=== PATIENT | female | born 1995 | race African-American/Black ===

== ENCOUNTER 2021-08-31 14:39 | Inpatient (IN) | payer OTHER ==
[~2021-08-31] VITALS: Ht 162.6 cm; Wt 68.2 kg
[2021-08-31] MEDS ORDERED: MORPHINE SULFATE 15 MG IR TABLET PO ONE (17:00)
[2021-08-31 18:08] LABS: BASOPHILS % (AUTO) 0.1 % (0.0-2.0); EOSINOPHILS % (AUTO) 0.1 % (1.0-6.0); HEMATOCRIT 36.8 % (36-46); LYMPHOCYTES # (AUTO) 1.2 K/uL (1.0-4.8); MEAN CORPUSCULAR HEMOGLOBIN 26.4 pg (26.0-34.0); MEAN CORPUSCULAR HGB CONC 32.7 G/dL (31.0-37.0); MEAN CORPUSCULAR VOLUME 81 fL (80-100); MONOCYTES # (AUTO) 0.4 K/uL (0.1-1.0); MONOCYTES % (AUTO) 3.5 % (2.0-9.0); NEUTROPHILS # (AUTO) 11.2 K/uL (1.8-7.7); PLATELET COUNT (AUTO) 238 K/uL (150-450); RED BLOOD CELL COUNT(AUTO) 4.56 MIL/uL (4.00-5.20); RED CELL DISTRIBUTION WIDTH 14.5 % (11.5-14.5)
[2021-08-31 18:09] LABS: NEUTROPHILS % (AUTO) 87.3 % (40.0-70.0)
[2021-08-31 18:16] LABS: ANION GAP 11 mmol/L (8-16); CALCIUM, TOTAL 9.1 mg/dL (8.8-10.5); CARBON DIOXIDE 22 mmol/L (22-29); CHLORIDE 101 mmol/L (98-107); CREATININE 0.79 mg/dL (0.60-1.30); GLOMERULAR FILTR. RATE CALC > 60 mL/min (>60); GLUCOSE,RANDOM 101 mg/dL (70-110); POTASSIUM 3.5 mmol/L (3.5-5.1); SODIUM SERUM 134 mmol/L (136-145); UREA NITROGEN, BLOOD 9 mg/dL (7-18)
[2021-08-31 18:21] LABS: ALANINE AMINOTRANSFERASE 23 U/L (12-78); ALBUMIN 3.6 g/dL (3.4-5.0); ALKALINE PHOSPHATASE 72 U/L (46-116); ASPARTATE AMINOTRANSFERASE 23 U/L (15-37); BILIRUBIN,TOTAL 0.6 mg/dL (0.1-1.0); TOTAL PROTEIN, SERUM 7.3 g/dL (6.4-8.2)
[2021-08-31 18:38] LABS: COVID AG,FIA SOURCE NASAL SWAB
[2021-08-31 18:42] LABS: APPEARANCE,URINE CLEAR (CLEAR); BILIRUBIN,URINE NEGATIVE (NEGATIVE); GLUCOSE, URINE (UA) NEGATIVE (NEGATIVE); LEUKOCYTE ESTERASE ,URINE NEGATIVE (NEGATIVE); NITRATE,URINE NEGATIVE (NEGATIVE); OCCULT BLOOD,URINE NEGATIVE (NEGATIVE); PH,URINE 6.5 (5.0-8.0); PROTEIN,URINE NEGATIVE (NEGATIVE); SPECIFIC GRAVITIY, URINE 1.015 (1.003-1.030); UROBILINOGEN,URINE <=1.0 mg/dL (<=1.0)
[2021-08-31] MEDS ORDERED: MAGNESIUM HYDROXIDE SUSPENSION 30 ML UDCUP PO PRN (22:15)
[2021-08-31] MEDS ORDERED: BISACODYL 10 MG RECTAL RECTAL SUPPOSITORY PR PRN (22:15)
[2021-08-31] MEDS ORDERED: ONDANSETRON HCL 4 MG/2 ML VIAL IVP PRN (22:15)
[2021-08-31] MEDS ORDERED: ZOLPIDEM TARTRATE 5 MG TABLET PO PRN (22:15)
[2021-09-01] MEDS: MORPHINE SULFATE 2 MG/ML SYRINGE IVP PRN ×4 (00:12→18:47)
[2021-09-01 00:34] VITALS: BP 125/76
[2021-09-01] MEDS: HYDROCODONE/ACETAMINOPHEN 5-325 MG TABLET PO PRN ×3 (01:13→20:13)
[2021-09-01 04:25] VITALS: BP 106/68
[2021-09-01 07:46] VITALS: BP 114/68
[2021-09-01] MEDS: HEPARIN SODIUM,PORCINE 5,000 UNITS/ML VIAL SQ SCH ×5 (08:00→23:31)
[2021-09-01] MEDS: DOCUSATE SODIUM 100 MG CAPSULE PO SCH ×2 (08:26→20:13)
[2021-09-01] MEDS: PANTOPRAZOLE SODIUM 40 MG DR TABLET PO SCH (08:26)
[2021-09-01] MEDS ORDERED: RINGERS SOLUTION,LACTATED 1,000 ML IV ONE ×2 (09:45→11:42)
[2021-09-01] MEDS ORDERED: BUPIVACAINE HCL/PF 0.25% 30 ML VIAL ONE (09:48)
[2021-09-01] MEDS ORDERED: VANCOMYCIN HCL 1 GM/VIAL ONE (09:48)
[2021-09-01] MEDS ORDERED: BUPIVACAINE LIPOSOME/PF 1.3%-13.3MG/ML SUSPENSION 20 ML VIAL INJ ONE ×2 (10:00→23:00)
[2021-09-01] MEDS ORDERED: SODIUM CHLORIDE 0.9% 1,000 ML ONE (11:36)
[2021-09-01] MEDS ORDERED: BUPIVACAINE HCL/DEX-WATER/PF 0.75% 2 ML AMP ITH ONE (11:45)
[2021-09-01] MEDS ORDERED: MUPIROCIN CALCIUM 2% 22 GM OINTMENT ONE (13:10)
[2021-09-01] MEDS ORDERED: FentaNYL CITRATE PF 100 MCG/2 ML VIAL ONE (13:20)
[2021-09-01 15:34] VITALS: BP 110/67
[2021-09-01 19:35] VITALS: BP 157/86
[2021-09-01] MEDS ORDERED: MORPHINE SULFATE 2 MG/ML SYRINGE IVP ONE (21:15)
[2021-09-02 04:40] VITALS: BP 137/70
[2021-09-02] MEDS: MORPHINE SULFATE 2 MG/ML SYRINGE IVP PRN (06:00)
[2021-09-02 08:00] VITALS: BP 128/75
[2021-09-02] MEDS: HEPARIN SODIUM,PORCINE 5,000 UNITS/ML VIAL SQ SCH ×2 (08:00→15:33)
[2021-09-02] MEDS: PANTOPRAZOLE SODIUM 40 MG DR TABLET PO SCH (09:05)
[2021-09-02] MEDS: DOCUSATE SODIUM 100 MG CAPSULE PO SCH (09:05)
[2021-09-02] MEDS: ACETAMINOPHEN 325 MG TABLET PO PRN ×2 (09:05→17:03)
[2021-09-02 16:30] VITALS: BP 136/86
[2021-09-02] MEDS ORDERED: ACET-784 PO (16:31)
[2021-09-02] MEDS ORDERED: PREN1TAB80 PO (16:33)
== END 2021-09-02 19:45 | disposition home or self-care (01) | DRG 817 ==
LOC: EMS 14:43 → 6N 23:22
PROVIDERS: ADMIT Internal Medicine; ATTEND Internal Medicine
PROC: 0QSK04Z Reposition Left Fibula with Internal Fixation Device, Open Approach (ICD-10-PCS; 2021-09-01)
PROC: 0QSH04Z Reposition Left Tibia with Internal Fixation Device, Open Approach (ICD-10-PCS; principal; 2021-09-01 12:15)
DX: O98.519 Other viral diseases complicating pregnancy, unspecified trimester (principal); U07.1 COVID-19; R65.10 Systemic inflammatory response syndrome (SIRS) of non-infectious origin without acute organ dysfunction; S82.842A Displaced bimalleolar fracture of left lower leg, initial encounter for closed fracture; W18.30XA Fall on same level, unspecified, initial encounter; S93.03XA Subluxation of unspecified ankle joint, initial encounter; Y93.89 Activity, other specified; Y92.89 Other specified places as the place of occurrence of the external cause; Y99.9 Unspecified external cause status; Z3A.00 Weeks of gestation of pregnancy not specified; O26.899 Other specified pregnancy related conditions, unspecified trimester
CPT/HCPCS: 80053; 81003; 84702; 85025; 87081; 93005; 97162; 97165; 97535; 99285; C9290; J0690; J1644; J2270; J3010; J3370; J3490; J7030; J7120